=== PATIENT | female | born 1995 | race Caucasian/White ===

== ENCOUNTER 2025-05-25 08:42 | Outpatient (AMB) | payer OTHER, SELFPAY ==
--- NOTE | 2025-05-25 08:43 | MHC.PC.OV ---
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 Is last menstrual period known: Yes Last menstrual period: 05/21/25 Post menopausal: No Patient : No Allergies amoxicillin Allergy (Intermediate, Verified 05/25/25 09:10) Hallucinations Penicillins Allergy (Intermediate, Verified 05/25/25 09:10) Hallucinations Medication List - Last Reconciled 05/25/25 by Bonifacio Franco CNP cetirizine (Zyrtec) 10 mg PO BID PRN cholecalciferol (vitamin D3) 125 mcg PO DAILY famotidine (Heartburn Relief (famotidine)) 20 mg PO BEDTIME famotidine 10 mg PO DAILY multivitamin (Daily Multi-Vitamin tablet) 1 tab PO DAILY omalizumab (Xolair) 300 mg subcut Q2W tirzepatide (weight loss) (Zepbound) mg subcut Tobacco use date assessed: 05/25/25 Dental Screening Dental Screen Date: 05/25/25 Did you have a dental visit in the last 12 months?: No Did you have a dental problem in the last 6 months where you did not have access to dental care?: No Was dental information given to patient?: Yes HPI HPI Comments History of Present Illness Details 29-year-old female presents to establish [facility]. She admits to taking her medications as prescribed without adverse reactions. She notes controlled depressive symptoms. She was on psychotropic medications until 12 years ago. She is followed by a therapist weekly. Prior PCP? - [facility] Last office visit/CPE/labs - 1.5 year ago Acute issue(s) - None Past Medical History - Depression, vitamin d deficiency, chronic idiopathic urticaria (on famotidine and xolair), sinusitis, obesity (on tirzepatide) Surgical History - None Family History - Dad: Thyroid disorder - Mom: Cervical cancer - MGM: Breast cancer - PGF: Cardiovascular disease Social History - Nonsmoker. Does not vape. Drinks less than 1 glass of mixed drink weekly. CBD gummy once weekly - Has been making healthy dietary choices. Exercises routinely. Difficulty falling and staying asleep for the past 2-3 years, CBD is helpful, snores but never had a sleep study Health maintenance - Last eye exam was 10 years ago. Referred to Ophthalmology for routine eye exam - Last dental visit was several years ago; encouraged to schedule an appointment with his dentist for routine dental care - Last Tdap was in 2018; record not currently available - Has not been vaccinated for the flu this season; plans on getting the vaccine soon - Last pap smear test was 03/2025: Normal: Record not currently available Specialists - [facility], [employer] [facility] at [facility], weight management clinic, [facility], therapist [facility] Medical History (Updated 05/25/25 @ 09:33 by Bonifacio Franco CNP) Depression Sinusitis Family History (Updated 05/25/25 @ 09:03 by Paris Pitts MA) Maternal Aunt FH: mental illness Substance abuse Paternal Grandfather Cardiovascular disease Father Thyroid disorder Mother Cervical cancer Maternal Grandmother Breast cancer Social History (Updated 05/25/25 @ 08:56 by Paris Pitts MA) Housing: Apartment Patient Tobacco Use Status: Never used Tobacco e-Cigarette/Vaping Use: Never Used Second Hand Smoke Exposure: No Substance Use Type: Marijuana service: No Current occupational status: employed 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 1. Little interest or pleasure in doing things: not at all 2. Feeling down, depressed, or hopeless: not at all 3. Trouble falling or staying asleep, or sleeping too much: several days 4. Feeling tired or having little energy: several days 5. Poor appetite or overeating: not at all 6. Feeling bad about yourself - or that you are a failure or have let yourself or your family down: several days 7. Trouble concentrating on things, such as reading the newspaper or watching television: not at all 8. Moving or speaking so slowly that other people could have noticed. Or the opposite - being so fidgety or restless that you have been moving around a lot more than usual: not at all 9. Thoughts that you would be better off or of hurting yourself in some way: not at all Total score: 3 Depression Screening Interpretation: Negative Depression Screening Done: Yes 41058 - PHQ-9 Billing: Yes Source: Developed by Drs. Luke Butler, Claire De Leon, Yuriy Hampton and colleagues, with an educational arie from [employer]. Thrive Questionnaire Date Thrive assessed: 05/25/25 I am a: Patient What is your living situation today?: I have a steady place to live Within the past 12 months, did the food you bought not last and you didn't have the money to get more?: Never true Within the past 12 months, did you worry whether your food would run out before you got money to buy more?: Never true Do you have trouble paying for medicines?: No Do you have trouble getting transportation to medical appointments?: No Do you have trouble paying your heating and electricity bill?: No Do you have trouble taking care of your child, family member or friend?: No Do you have trouble with day-to-day activities such as bathing, preparing meals, shopping, managing finances, etc.?: No Are you currently unemployed and looking for a job?: No Are you interested in more education?: No Please select the resources that you would like help with: None Currently or been in a relationship where the following occur: No concerns reported THRIVE Score: 0 AUDIT C Alcohol Use Questionnaire (AUDIT-C) 1. How often do you have a drink containing alcohol?: Monthly or less 2. How many drinks containing alcohol do you have on a typical day when you are drinking?: 1 or 2 3. How often do you have six or more drinks on one occasion?: Less than monthly Total Score: 2 Score Reviewed/Action Taken: Yes CANDI-7 AMB Questionnaire CANDI-7 Date CANDI - 7 assessed: 05/25/25 Feeling nervous, anxious, or on edge: 1 = Several days Not being able to stop or control worryin = Not at all Worrying too much about different things: 1 = Several days Trouble relaxin = Several days Being so restless that it is hard to sit still: 0 = Not at all Becoming easily annoyed or irritable: 1 = Several days Feeling afraid as if something awful might happen: 0 = Not at all Total CANDI-7 score (0-4 normal; 5-9 mild; 10-14 moderate; 15-21 severe): 4 Source: Developed by Drs. Luke Butler, Claire De Leon, Yuriy Hampton and colleagues, with an educational arie from [employer]. CANDI-7 Assessment Billing CANDI-7 Assessment Tool: CANDI-7 Assessment 55521 Review of Systems Const Details: Denies chills, Denies fatigue, Denies fever(s), Denies headache(s) and Denies weakness HEENT Denies change in vision, Denies dizziness, Denies headache(s), Denies hearing loss, Denies nasal congestion, Denies sinus pain, Denies sinus pressure and Denies sore throat Card Denies chest pain, Denies lightheadedness, Denies dyspnea and Denies other (palpitations) Resp Denies cough, Denies dyspnea and Denies wheezing GI Denies abdominal pain, Denies melena, Denies hematochezia, Denies change in bowel habits, Denies dyspepsia and Denies nausea Denies hematuria and Denies dysuria Musc Denies abnormal gait, Denies myalgias, Denies arthralgias, Denies numbness and Denies tingling Skin/Breast Denies rash, Denies unusual bruising and Denies wounds Neuro Denies abnormal gait, Denies dizziness, Denies headache(s), Denies memory loss, Denies numbness, Denies Sensory deficit (Neuro), Denies tingling and Denies weakness Psych Denies anxiety, Denies depression and Denies memory loss Endo Denies cold intolerance, Denies fatigue, Denies heat intolerance, Denies polydipsia and Denies polyuria Kurt/Lymph Denies easy bleeding and Denies easy bruising Aller/Immun Denies wheezing Physical exam (Primary Care) Vital Signs: Last Vital Signs Temp 97.9 F 05/25/25 08:57 Pulse 86 05/25/25 08:57 Resp 16 05/25/25 08:57 BP 122/73 05/25/25 08:57 Pulse Ox 99 05/25/25 08:57 Oxygen Delivery Method Room Air 05/25/25 08:57 BMI result Body Mass Index 37.9 Tobacco/Smoking Status: Tobacco use Status Tobacco use date assessed 05/25/25 05/25/25 09:04 Patient Tobacco Use Status Never used Tobacco 05/25/25 09:04 e-Cigarette/Vaping Use Never Used 05/25/25 09:04 PHQ-9: PHQ-9 Score PHQ-9: Total score 3 05/25/25 09:12 Depression Screening Interpretation: Negative Thrive Assessment: Date of Thrive Assessment Date Thrive assessed 05/25/25 05/25/25 09:04 Currently or been in a relationship where the following occur: No concerns reported Const Other: General: no acute distress, well developed, alert and awake Nutritional Appearance: well nourished Orientation/consciousness: patient oriented x3 HENMT Head: Yes normocephalic and Yes atraumatic Ears: hearing grossly normal bilaterally and TM's normal bilaterally General nose exam: Normal external nose present and Normal nares present Mouth: Normal oral and palatal mucosa present and moist mucous membranes Teeth and gingiva: dentition normal Throat: Yes oropharynx normal Eyes Pupils: Equal, round and reactive pupils present and Pupil accommodation reflex normal EOM: EOMs intact bilaterally Neck Neck: Yes normal visual inspection, Yes no lymphadenopathy and Yes trachea midline Thyroid: Thyroid normal Carotids: no bruits Lymphatic: no lymphadenopathy noted Chest Chest palpation & inspection: normal inspection of the chest Resp Effort & Inspection: normal respiratory effort Auscultation: clear to auscultation bilaterally Cardio Rate: regular rate Rhythm: regular rhythm Heart sounds: S1 normal heart sound present, S2 normal heart sound present, no gallops, no murmurs and no rubs Bruits: no abdominal aortic bruits and no carotid bruits GI Palpation (GI): No Abdominal aortic bruit present, Soft to palpation, nontender, No hepatosplenomegaly present and No Rebound tenderness present Auscultation: normal bowel sounds General: Yes no CVA tenderness Back/Spine/Pelvis Back: no CVA tenderness Cervical Spine: cervical ROM normal and No Cervical spine tenderness Thoracic/Lumbar Spine: thoraco-lumbar ROM normal, No pain with thoraco-lumbar ROM, No thoracic spinal tenderness and No lumbar spinal tenderness Skin General: warm and dry. Normal skin color. Normal skin turgor Lesions: no lesions Rashes: no rashes Trauma: no lacerations or abrasions Wounds: no wounds Nails: normal Neuro General: patient oriented x3, gait normal and CN's II-XI intact bilaterally Cranial nerves: Yes Equal, round and reactive pupils present Cognition (Neuro): normal cognition Gait exam (Neuro): Normal gait present Motor exam (neuro): 5/5 motor strength present throughout Sensory Exam: No Sensory deficit (Neuro) Deep tendon reflexes (DTR's): Right patellar reflex intensity grade: 2+ and Left patellar reflex intensity grade: 2+ Extrem General: Yes normal to inspection, No edema and No calf tenderness Psych Appearance: grossly normal Affect: normal affect Attitude: cooperative Thought process: Normal thought process present Coding Level of Care Code New Pt Level 4 (28343) New Pt Prev Care 18-39yr(17945 Diagnoses Normal physical examination, routine Z00.00 Sleep disturbance G47.9 Snoring R06.83 Eye exam, routine Z01.00 Laboratory tests ordered as part of a complete physical exam (CPE) Z00.00 Additional Codes CANDI-7 Assessment Billing - CANDI-7 Assessment Tool: CANDI-7 Assessment 36825 ([id number]) PHQ-9 - 33702 - PHQ-9 Billing: Yes ([id number]) Assessment & Plan Assessment & Plan (1) Normal physical examination, routine: Code(s): Z00.00 - Encounter for general adult medical examination without abnormal findings Category: Medical Plan: No significant functional limitation noted. Continue current treatment regimen. Healthy diet and routine exercise encouraged. Perform lab work and follow-up for telehealth visit for labs review in 2-4 weeks. Follow-up with specialists as planned. Return sooner with symptoms or concerns. Verbalized understanding and agreed with the plan. (2) Sleep disturbance: Code(s): G47.9 - Sleep disorder, unspecified Category: Medical Plan: Reports difficulty falling and staying asleep for the past 2-3 years. CBD is helpful. She snores but has never had a sleep study. Likely attributed to sleep apnea. Instructed on sleep hygiene. Referred to sleep medicine for a sleep study. (3) Snoring: Code(s): R06.83 - Snoring Category: Medical Plan: Plan as above. (4) Eye exam, routine: Code(s): Z01.00 - Encounter for examination of eyes and vision without abnormal findings Category: Medical Plan: Last eye exam was 10 years ago. Referred to Ophthalmology for routine eye exam. (5) Laboratory tests ordered as part of a complete physical exam (CPE): Code(s): Z. - Encounter for general adult medical examination without abnormal findings Category: Medical Plan: Fasting labs ordered as part of a complete physical exam. Advised to fast for at least 10 hours before getting labs drawn. May drink water Verbalized understanding and agreed with treatment plan. Orders: Orders TSH reflex Free T4 05/25/25 Z00.00 - Encounter for general adult medical examination without abnormal findings UA CC w/rflx Micro + Cult 05/25/25 Z00.00 - Encounter for general adult medical examination without abnormal findings Complete Blood Count Auto Diff 05/25/25 Z00.00 - Encounter for general adult medical examination without abnormal findings Comprehensive Brickeys. Panel Fast 05/25/25 Z00.00 - Encounter for general adult medical examination without abnormal findings Lipid Panel 05/25/25 Z00.00 - Encounter for general adult medical examination without abnormal findings Microalbumin, Random (w Creat) 05/25/25 Z00.00 - Encounter for general adult medical examination without abnormal findings Vitamin D 25-OH Total 05/25/25 Z00.00 - Encounter for general adult medical examination without abnormal findings Referrals Sleep Medicine Referral G47.9 - Sleep disorder, unspecified, R06.83 - Snoring Ophthalmology Referral Z01.00 - Encounter for examination of eyes and vision without abnormal findings
[2025-05-25 08:57] VITALS: BP 122/73; PULSE 86; RESP 16; TEMP 36.6; O2SAT 99; BMI 37.9
--- OUTSIDE RECORDS SUMMARY | 2025-05-25 10:05 | XMS_ITS | Clinical Summary ---
Author Organization 175 [facility] Address [address] [place] [address] Phone Care Team Providers Care Finishing Trimmer Name Role Phone Yuli Berg MD Primary Care Provider [phone] Allergies Active Allergy Reactions Criticality Noted Date Comments Azithromycin Hives 10/05/2017 Penicillin G Hallucinations 07/24/2013 Medications omalizumab (XOLAIR) 150 mg injection Inject 300 mg into the skin every 28 days. 1 Active loratadine (CLARITIN) 10 mg tablet Take 2 Tabs by mouth 2 times daily. morning 0 Active hydrocortisone 2.5 % cream Apply two times a day to rash for 7-10 days. 3 Active famotidine (PEPCID) 20 mg tablet Take 1 Tab by mouth 2 times daily. 0 Active etonogestrel-eluti ng contraceptive device 68 mg implant subdermal implant Inject 68 mg into the skin Once. 9 Active EPINEPHrine (EpiPen 2-Arvin) 0.3 mg/0.3 mL injection Inject 1 Device as directed as needed (anaphylaxis) . Use as directed 0 Active cetirizine (ZyrTEC) 10 mg capsule Take 10 mg by mouth. 10 mg twice daily 20 mgs at nigh Active tirzepatide, weight loss, (Zepbound) 15 mg/0.5 mL injectionIndicatio ns:Class 3 severe obesity due to excess calories with body mass index (BMI) of 40.0 to 44.9 in adult, unspecified whether serious comorbidity present (CMS/HCC V24, CMS/HCC V28) Inject 0.5 mL (15 mg total) under the skin every 7 (seven) days. 2 mL 5 5 Active Active Problems Problem Noted Date Diagnosed Date Hepatic steatosis 06/14/2024 Class 3 severe obesity with body mass index (BMI) of 45.0 to 49.9 in adult ([facility] V24, [facility] V28) 06/14/2024 Morbid obesity with BMI of 4 5.0-49.9, adult ([facility] V24, [facility] V28) 06/14/2024 Vitamin D insufficiency 09/16/2021 Allergic conjunctivitis of both eyes 06/22/2020 Angio-edema 06/22/2020 Chronic urticaria 06/22/2020 Seasonal allergic rhinitis 06/22/2020 Dyslipidemia 09/28/2017 Major depressive disorder wi th single episode, in full remission ([facility] V24) 09/28/2017 Encounters Date Type Department Care Team Description 03/03/2025 10:45 AM EDT Office Visit Bariatric Surgery - [address] [address] Johanna Lock MD Class 3 severe obesity due to excess calories with body mass index (BMI) of 40.0 to 44.9 in adult, unspecified whether serious comorbidity present ([facility] V24, [facility] V28) (Primary Dx) from Last 3 Months Immunizations Name Administration Dates Next Due COVID-19 (Pfizer/Comirnaty) 12yo and older 06/08/2023 DTP 03/23/2000, 6,1995,02/19,1994 [id number] (Pentacel) 2mo to less than 5yo 03/23/2000,02/19/1995,1994,10/20 H1N1 Inj Preservative Free 08/12/2009 HPV, Quadrivalent 10/28/2010,06/24/2010,04/22/20 10 Hepatitis B Pediatric (Enger ix B; Recombivax HB) to less than 20 yo 08/22/1995,1994,1994 IPV Inactivated polio (Ipol) 6wks and older 02/18/1996,02/19/1995,1994,10/20 Influenza, Unspecified 06/04/2023 MMR, measles mumps and rubel la Live (Priorix; M-M-R II) 12mo and older 03/23/2000,11/19/1995 Meningococcal MCV4P 04/22/2010 Moderna SARS-CoV-2 COVID-19, mRNA, LNP-S, preservative free 07/27/2021,01/07/2021,12/10/2020 Pfizer SARS-CoV-2 COVID-19, mRNA, LNP-S, preservative free 06/05/2023 Tdap Tetanus diptheria acell ular pertussis (Boostrix; Adacel) 7yo and older 09/28/2017,08/22/2006 Varicella live (Varivax) 12m o and older 08/07/2007,05/19/1999 Surgical History Surgery Date Site/Laterality Comments OTHER SURGICAL HISTORY PROCEDURE: DENIES PREVIOUS SURGERY Medical History Medical History Date Comments Morbid obesity with BMI of 4 5.0-49.9, adult (CMS/HCC V24, CMS/HCC V28) 09/28/2017 DX:Morbid obesity wit h BMI of 45.0-49.9, adult (HCC) Dyslipidemia 09/28/2017 DX:Dyslipidemia Family history of breast cancer 09/28/2017 DX:Family history of breast cancer Family history of thyroid disease 10/17/2013 DX:Family history of thyroid disease Major depressive disorder wi th single episode, in full remission (CMS/HCC V24) 09/28/2017 DX:Major depressive disorder with single episode, in full remission (HCC) Hepatic steatosis DX:Hepatic shona atosis Family History Medical History Relation Name Comments Other: breast cancer Aunt in 20s, Anemia, maternal, drug addiction Other: Thyroid disease Father Other: allergic rhinitis Father Other: heart disease Father's side 1 Melanoma Father's side 2 Uncle Breast cancer Maternal Grandmother bilate ral Cervical cancer Mother Other: allergic rhinitis Mother Other: Sepsis Mother's side Aunt Celiac disease Paternal Grandmother Other: eating disorder Sister 1 Other: allergic rhinitis Sister 2 Colon cancer Neg Hx Ovarian cancer Neg Hx Uterine cancer Neg Hx Relation Name Status Comments Aunt Father Alive Father's side 1 Father's side 2 Maternal Grandmother Alive Mother Alive Mother's side Paternal Grandmother Sister 1 Alive Sister 2 Alive Social History Tobacco Use Types Packs/Day Years Used Date Smoking Tobacco: Never Smokeless Tobacco: Never Alcohol Use Standard Drinks/Week Comments Yes 0 (1 standard drink = 0.6 oz pur e alcohol) Comments Unknown Sex and Gender Information Value Date Recorded Sex Assigned at Not on file Legal Sex Female 10:36 AM EST Gender Identity Not on file Sexual Orientation Not on file Obstetrics History Last Filed Vital Signs Vital Sign Reading Time Taken Comments Blood Pressure 106/72 03/03/2025 10:30 AM EDT Pulse 84 03/03/2025 10:30 AM EDT Temperature 36.6 C (97.8 F) 03/03/2025 10:30 AM EDT Respiratory Rate - - Oxygen Saturation - - Inhaled Oxygen Concentration - - Weight 116 kg (256 lb) 03/03/2025 10:30 AM EDT Height 170.2 cm (5' 7 ) 03/03/2025 10:30 AM EDT Body Mass Index 40.1 03/03/2025 10:30 AM EDT Plan of Treatment Upcoming Encounters Date Type Department Care Team (Late st Contact Info) Description 09/08/2025 4:15 PM EST Office Visit Bariatric Surgery - [address] [place] [address] Johanna Lock MD [address] [place] [phone] Health Maintenance Due Date Last Done Comments Pneumococcal Vaccine: Pediatrics (0 to 5 Years) and At-Risk Patients (6 to 49 Years) (1 of 2 - PCV) 2013 Cervical Cancer Screening: Pap Smear 09/28/2020 09/28/2017, 09/28/2017 Social Influencers of Health Screening 08/01/2022 Depression Screening 09/03/2024 08/24/2023 Influenza Vaccine (#1) 2025 , 06/08/2023, 06/04/2023, Additional history exists DTaP,Tdap,and Td Vaccines (8 - Td or Tdap) 09/28/2027 09/28/2017, 08/22/2006, 03/23/2000, Additional history exists Cholesterol Screening (Lipid Panel) 03/04/2030 03/04/2025, 05/20/2024, 05/20/2024 RSV Immunization Adult Patients (1 - 1-dose 75+ series) 2069 Hepatitis B Vaccines Completed 08/22/1995, 1994, 1994 HIB Vaccines Aged Out 03/23/2000, 03/04, 02/19/1995, Additional history exists No longer eligible based on patient's age to complete this topic IPV Vaccines Completed 03/23/2000, 02/01, 02/19/1995, Additional history exists MMR Vaccines Completed 03/23/2000, 11/19/1995 Varicella Vaccines Completed 08/07/2007, 05/19/1999 Meningococcal ACWY Vaccine Aged Out 04/22/2010 N o longer eligible based on patient's age to complete this topic HPV Vaccines Completed 10/28/2010, 06/04, 04/22/2010 HIV Screening Completed 04/29/2019 COVID-19 Vaccine Completed 05/15/2024, 02/2023, 06/05/2023, Additional history exists Hepatitis C Screening Completed 05/20/2024 Hepatitis A Vaccines Aged Out No long er eligible based on patient's age to complete this topic Meningococcal B Vaccine Aged Out No l onger eligible based on patient's age to complete this topic RSV Immunization Patients Under 20 months Aged Out No longer eligible based on patient's age to complete this topic Procedures Procedure Name Priority Date/Time Associated Diagnosis Comments LIPID PANEL WITH REFLEX TO DIRECT LDL Routine 03/04/2025 9:58 AM EDT Class 3 severe obesity due to excess calories with body mass index (BMI) of 40.0 to 44.9 in adult, unspecified whether serious comorbidity present (CMS/HCC V24, CMS/HCC V28) HEPATIC FUNCTION PANEL Routine 03/04/2025 9:58 AM EDT Class 3 severe obesity due to excess calories with body mass index (BMI) of 40.0 to 44.9 in adult, unspecified whether serious comorbidity present (CMS/HCC V24, CMS/HCC V28) HM HEPATITIS C SCREENING Routine 05/20/2024 DEPRESSION SCREENING Routine 08/24/2023 HIV SCREENING Routine 04/29/2019 HPV Routine 09/28/2017 from Last 3 Months or Most Recently Relevant to Health Maintenance Results * Lipid panel with reflex to direct LDL (03/04/2025 9:58 AM EDT) Cholesterol 126 0 - 200 mg/dL LAB CHEMISTRY METHOD 03/04/2025 3:25 PM EDT [facility] Triglycerides 78 0 - 150 mg/dL LAB CHEMISTRY METHOD 03/04/2025 3:25 PM EDT [facility] HDL 44 >=40 mg/dL LAB CHEMISTRY METHOD 03/04/2025 3:25 PM EDT [facility] LDL Calculated 66 0 - 100 mg/dL LAB CHEMISTRY METHOD 03/04/2025 3:25 PM EDT [facility] VLDL Cholesterol Arcadio 15.6 mg/dL LAB CHEMISTRY METHOD 03/04/2025 3:25 PM EDT [facility] Non HDL Chol. (LDL+VLDL) 82 <145 mg/dL LAB CHEMISTRY METHOD 03/04/2025 3:25 PM EDT [facility] Chol/HDL Ratio 2.9 0.0 - 4.4 LAB CHEMISTRY METHOD 03/04/2025 3:25 PM EDT [facility] Blood Venous blood specimen / Unknown Venipuncture / Unknown 03/04/2025 9:58 AM EDT 03/04/2025 9:58 AM EDT us Johanna Lock MD LAB BLOOD ORDERABLES Final R esult [facility] [address] [place] [address], [place] [phone] * (ABNORMAL) Hepatic function panel (03/04/2025 9:58 AM EDT) Total Protein 7.1 6.0 - 8.0 g/dL LAB CHEMISTRY METHOD 03/04/2025 3:25 PM EDT [facility] Albumin 4.0 3.2 - 5.0 g/dL LAB CHEMISTRY METHOD 03/04/2025 3:25 PM EDT [facility] Total Bilirubin 0.4 0.0 - 1.4 mg/dL LAB CHEMISTRY METHOD 03/04/2025 3:25 PM EDT [facility] Bilirubin, Direct 0.1 0.0 - 0.3 mg/dL LAB CHEMISTRY METHOD 03/04/2025 3:25 PM EDT [facility] Bilirubin, Indirect 0.3 0.0 - 1.1 mg/dL LAB CHEMISTRY METHOD 03/04/2025 3:25 PM EDT [facility] ALT (SGPT) 20 10 - 60 unit/L LAB CHEMISTRY METHOD 03/04/2025 3:25 PM EDT [facility] AST (SGOT) 6(L) 10 - 42 unit/L LAB CHEMISTRY METHOD 03/04/2025 3:25 PM EDT [facility] Alkaline Phosphatase 49 42 - 121 unit/L LAB CHEMISTRY METHOD 03/04/2025 3:25 PM EDT [facility] Blood Venous blood specimen / Unknown Venipuncture / Unknown 03/04/2025 9:58 AM EDT 03/04/2025 9:58 AM EDT us Johanna Lock MD LAB BLOOD ORDERABLES Final R esult [facility] [address] [place] [address], [place] [phone] * Hepatitis C Screening (05/20/2024) Pathologist [facility] Hepatitis C Screening abstracted us Historical Provider HEALTH MAINTENANCE Final Result * Depression Screening (08/24/2023) Depression Screening abstracted Historical Provider HEALTH MAINTENANCE Final Result * HIV Screening (04/29/2019) Pathologist [facility] HIV Screening abstracted Historical Provider HEALTH MAINTENANCE Final Result * Cervical Cancer Screening: HPV (09/28/2017) Pathologist [facility] Cervical Cancer Screening: HPV positive, abstracted Historical Provider HEALTH MAINTENANCE Final Result from Last 3 Months or Most Recently Relevant to Health Maintenance [place] [address] [facility] [place] [address] Care Teams Finishing Trimmer Relationship Specialty Start Date End Date Yuli Berg MD [address] [place] [id number] PCP - General Internal Medicine 03/03/25
== END 2025-05-25 09:33 | disposition home or self-care (01) ==
LOC: HO.HMCFM 08:42
PROVIDERS: PCP Nurse Practitioner Family; Visit Provider Nurse Practitioner Family
DX: Z00.00 Encounter for general adult medical examination without abnormal findings (principal); G47.9 Sleep disorder, unspecified; R06.83 Snoring; Z01.00 Encounter for examination of eyes and vision without abnormal findings

== ENCOUNTER → 2025-05-25 08:42 | Outpatient (BNVA) | payer OTHER, SELFPAY | PROVIDERS: PCP Nurse Practitioner Family; Visit Provider Nurse Practitioner Family | DX: Z00.00 Encounter for general adult medical examination without abnormal findings (principal); R06.83 Snoring | CPT/HCPCS: 96127; 99202; 99385 ==

== ENCOUNTER 2025-06-08 07:37 | Outpatient (REF) | payer OTHER, SELFPAY ==
--- OUTSIDE RECORDS SUMMARY | 2025-06-08 07:42 | XMS_ITS | Clinical Summary ---
Author Organization 175 [facility] Address [address] [place] [address] Phone Care Team Providers Care Housekeeping Supervisor Name Role Phone Yuli Berg MD Primary Care Provider [phone] Allergies Active Allergy Reactions Criticality Noted Date [...] (BMI) of 45.0 to 49.9 in adult ([facility] V24, [facility] V28) 06/14/2024 Morbid obesity with BMI of 4 5.0-49.9, adult ([facility] V24, [facility] V28) 06/14/2024 Vitamin D insufficiency 09/16/2021 Allergic conjunctivitis of both eyes 06/22/2020 Angio-edema 06/22/2020 Chronic urticaria 06/22/2020 Seasonal allergic rhinitis 06/22/2020 Dyslipidemia 09/28/2017 Major depressive disorder wi th single episode, in full remission ([facility] V24) 09/28/2017 Immunizations Immunization Administration Dates Next Due COVID-19 (Pfizer/Comirnaty) 12yo and older 06/08/2023 DTP 03/23/2000, 6,1995,02/19,1994 [id number] (Pentacel) 2mo to less than 5yo 03/23/2000,02/19/1995,1994,10/20 [...] SARS-CoV-2 COVID-19, mRNA, LNP-S, preservative free 07/27/2021,01/07/2021,12/10/2020 Isentropic SARS-CoV-2 COVID-19, mRNA, LNP-S, preservative free 06/05/2023 [...] PM EST Office Visit Bariatric Surgery - [address] [place] [address] Johanna Lock MD [address] [place] [phone] Health Maintenance Due Date Last Done [...] 1994, 1994 HIB Vaccines Aged Out 03/23/2000, 07/09/1999, 02/19/1995, Additional history exists No longer eligible [...] serious comorbidity present (CMS/HCC V24, CMS/HCC V28) HEPATITIS C SCREENING Routine 05/20/2024 DEPRESSION SCREENING Routine 08/24/2023 HIV SCREENING Routine 04/29/2019 HPV Routine 09/28/2017 from Last 3 Months or Most Recently Relevant to Health Maintenance Results * Lipid panel with reflex to direct LDL (03/04/2025 9:58 AM EDT) Cholesterol 126 0 - 200 mg/dL LAB CHEMISTRY METHOD 03/04/2025 3:25 PM EDT [facility] Triglycerides 78 0 - 150 mg/dL LAB CHEMISTRY METHOD 03/04/2025 3:25 PM EDT [facility] HDL 44 >=40 mg/dL LAB CHEMISTRY METHOD 03/04/2025 3:25 PM EDT [facility] LDL Calculated 66 0 - 100 mg/dL LAB CHEMISTRY METHOD 03/04/2025 3:25 PM EDT [facility] VLDL Cholesterol Arcadio 15.6 mg/dL LAB CHEMISTRY METHOD 03/04/2025 3:25 PM EDT [facility] Non HDL Chol. (LDL+VLDL) 82 <145 mg/dL LAB CHEMISTRY METHOD 03/04/2025 3:25 PM EDT [facility] Chol/HDL Ratio 2.9 0.0 - 4.4 LAB CHEMISTRY METHOD 03/04/2025 3:25 PM EDT [facility] Blood Venous blood specimen / Unknown Venipuncture / Unknown 03/04/2025 9:58 AM EDT 03/04/2025 9:58 AM EDT Johanna Lock MD LAB BLOOD ORDERABLES Final R esult [facility] [address] [place] [address], [place] [phone] * Hepatitis C Screening (05/20/2024) [facility] Hepatitis C Screening abstracted Historical Provider HEALTH MAINTENANCE Final Result * Depression Screening (08/24/2023) [facility] Depression Screening abstracted Historical Provider HEALTH MAINTENANCE Final Result * HIV Screening (04/29/2019) [facility] HIV Screening abstracted Historical Provider HEALTH MAINTENANCE Final Result * Cervical Cancer Screening: HPV (09/28/2017) [facility] Cervical Cancer Screening: HPV positive, abstracted Historical Patricia URBINA HEALTH MAINTENANCE Final Result from Last 3 Months or Most Recently Relevant to Health Maintenance Insurance [facility] [place] [id number] [facility] [employer] Care Teams Housekeeping Supervisor Relationship Specialty Start Date End Date Yuli Berg MD [address] [place] [phone] PCP - General Internal Medicine 03/03/25
[2025-06-08 11:36] LABS: MANUAL DIFF FLAG NO
[2025-06-08 11:39] LABS: Hematocrit 40.6 % (37.0-47.0); Hemoglobin 13.8 g/dl (12.0-16.0); Imm Gran Abs Auto 0.02 X10*3/uL (0.00-0.03); Imm Gran Pct Auto 0.3 % (0.0-0.4); Lymphocytes Absolute Auto 1.3 X10*3/uL (1.2-4.9); Mean Corpuscular HGB Conc 34.0 g/dl (31.0-35.0); Mean Corpuscular Hemoglobin 30.2 pg (27.0-33.0); Mean Corpuscular Volume 88.8 fL (80.0-98.0); NRBC Abs Auto 0.000 X10*3/uL (0.0-0.012); NRBC Pct Auto 0.0 /100WBC (0.0-0.2); Platelet Count 197 X10*3/uL (160-400); Red Blood Count 4.57 X10*6/uL (4.20-5.50); White Blood Count 7.0 X10*3/uL (4.8-10.8)
[2025-06-08 12:05] LABS: Alanine Aminotransferase 15 U/L (0-31); Albumin Level 4.1 g/dL (3.5-5.0); Alkaline Phosphatase 47 U/L (39-117); Anion Gap 9 (12-20); Aspartate Amino Transferase 18 U/L (5-31); Blood Urea Nitrogen 10 mg/dL (9-16); Calcium 8.9 mg/dL (8.4-10.2); Carbon Dioxide 27 mmol/L (22-29); Chloride 107 mmol/L (96-108); Cholesterol 127 mg/dL (<200); Estimated Glomerular Filt Rate > 60; HDL Cholesterol 36 mg/dL (>40); Potassium 3.9 mmol/L (3.3-5.1); Sodium 139 mmol/L (135-145); Total Protein 6.8 g/dL (6.5-8.0); Triglycerides 57 mg/dL (<150)
[2025-06-08 14:54] LABS: Appearance Urine Clear; Glucose Urine UA Negative (Negative); PH 6.0 (5.0-9.0); Specific Gravity - Urine <= 1.005 (1.005-1.025)
== END 2025-06-08 07:38 | disposition home or self-care (01) ==
LOC: HO.WFDLDS 07:37
PROVIDERS: Visit Provider Nurse Practitioner Family
DX: Z00.00 Encounter for general adult medical examination without abnormal findings (principal)
CPT/HCPCS: 36415; 80053; 80061; 81003; 82043; 82306; 82570; 84443; 85025

== ENCOUNTER 2025-06-24 08:28 | Outpatient (AMB) | payer OTHER, SELFPAY ==
--- NOTE | 2025-06-24 08:31 | MHC.OFFVIS ---
Vital Signs 06/24/25 08:32 Height 5 ft 7 in Weight 240 lb BMI 37.6 BP 114/86 Blood Pressure Location Lt brachial Position Sitting Pulse 94 Pulse Source Pulse Oximeter Pulse Oximetry (%) 96 Intake Visit Reasons: INP-Sleep Disorder Intake Note: Patient presents [facility] Sleep Disorder. Difficulty falling and staying asleep for the past 2-3 years, CBD is helpful, snores but never had a sleep study. No witnessed apnea/gasping. Goes to bed 9:30-10pm and wake up at 6am. Wakes up 3-4times. Naps 30min-1.5hrs. Accompanied by: Self / Same As Patient Allergies amoxicillin Allergy (Intermediate, Verified 06/24/25 08:34) Hallucinations Penicillins Allergy (Intermediate, Verified 06/24/25 08:34) Hallucinations HPI Comments Details: 29 year old female is a new pt referral for sleep disorder. Difficulty falling asleep for the past 2 years snoring and no gasping for air. She goes to bed at 10pm with multiple night time awakenings. She takes 5mg of CBD and will get about 4 to 5 hours of sleep then wakes up. She denies morning headaches and clenches her jaw, wakes up with sore r. sided temporal pain. She notices her eyes become fatigued due to long periods of computer use, is now starting to wear her new glasses. She has allergies, for chronic hives and doesnt understand triggers and sees an ash kier boiler. She has gerd and is managed with diet and lifestyle, along with pepcid ac daily. She has bouts of of depression, sees a therapist weekly. Her memory and diet are stable. She is on Zepbound for 2 years now and manages her portion sizes. She has RLS symptoms with constant urge to rub her legs together and it is not distressing. She has numbness and tingling in her left hand and notices she was dropping things due to weakness in that arm. Right arm goes numb also but mildly. She does not smoke or drink alcohol. 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 Current occupational exposures/hazards: No Cognitive needs: No Hearing needs: No Vision needs: No Physical Exam Vital Signs: Last Vital Signs Pulse 94 06/24/25 08:32 BP 114/86 06/24/25 08:32 Pulse Ox 96 06/24/25 08:32 BMI result Body Mass Index 37.6 Const General: cooperative, comfortable and no acute distress Nutritional Appearance: overweight Orientation/consciousness: patient oriented x3 HEENT Face and sinus: Yes face symmetric Teeth and gingiva: other (Mallampti score is 2) Throat: Yes uvula midline Eyes Pupils: Equal, round and reactive pupils present Neck Neck: Yes full ROM Resp Effort & Inspection: normal respiratory effort and able to speak in complete sentences Neuro General: patient oriented x3 and moves all extremities Cranial nerves: Yes Equal, round and reactive pupils present, Yes Normal accommodation reflex present, Yes Nystagmus not present, Yes Normal facial strength present, Yes Midline tongue present, Yes Symmetric palate elevation present, Yes Ability to bilaterally rotate head present and Yes Ability to bilaterally elevate shoulders present Cognition (Neuro): normal cognition Gait exam (Neuro): Normal gait present Motor exam (neuro): 5/5 motor strength present throughout and Normal motor muscle tone present throughout Psych Appearance: grossly normal Mental Status: mental status grossly normal Affect: normal affect Attitude: cooperative Thought process: Normal thought process present Results Reviewed Results Reviewed: Labs reviewed with pt. Assessment & Plan Assessment & Plan (1) Excessive daytime sleepiness: Code(s): G47.19 - Other hypersomnia Category: Medical Plan HST Excessive daytime sleepiness will r/o GINA Reviewed Labs we will monitor for changes. Will check Ferritin, Folate B12, Homocysteine and MMA. Neuropathy of CTS? L>R weakness and numbness, dropping items we will monitor. B12 1000mcg daily Magnesium 200mg po daily at bedtime Orders: Orders RT home sleep study Today G47.19 - Other hypersomnia Methylmalonic Acid Today G47.19 - Other hypersomnia, G47.9 - Sleep disorder, unspecified, R53.83 - Other fatigue Homocysteine Today G47.19 - Other hypersomnia, G47.9 - Sleep disorder, unspecified, R53.83 - Other fatigue Vitamin B12 and Folate Today G47.19 - Other hypersomnia Ferritin Today G47.19 - Other hypersomnia Vitamin B6 Today G47.19 - Other hypersomnia Medications: New mecobalamin (vitamin B12) allow to dissolve in mouth OR may chew lightly before swallowing 1,000 mcg PO DAILY 60 ea 2RF neuropathy 2 months MDD 1000mcg G62.9 - Polyneuropathy, unspecified Patient Instructions: Sleep Hygiene provided: set a scheduled bedtime and wake time to help regulate the circadian rhythm and balance the release of pituitary hormones. Sleep in a dark room, temperatures below 68 degrees, and no devices n bed. Limit caffeinated products 6 hours prior to bed, and limit fluids 2-4 hours prior to bed. Gentle night yoga, diffusing essential oils, and playing soft music can be relaxing. Coding Level of Care Code New Pt Level 4 (15920) Diagnoses Excessive daytime sleepiness G47.19 Sleep Questionnaire Difficulty falling asleep: No Difficulty staying asleep?: Yes Number of arousals: 3 Snoring: Yes Witnessed apneas: No Gasping arousals: No Nocturia: No GERD: Yes Vivid dreams: Yes Acting out dreams: No Abnormal behavior in sleep: No Abnormal movements in sleep: Yes Morning headaches: No Excessive daytime sleepiness: Yes Daytime naps: Yes (on the weekends) Restless legs: No Hallucinations: No Sleep paralysis: No Drop attacks: No Sleep Study: No CPAP: No
[2025-06-24 08:32] VITALS: BP 114/86; PULSE 94; O2SAT 96; BMI 37.6
--- OUTSIDE RECORDS SUMMARY | 2025-06-24 08:45 | XMS_ITS | Clinical Summary ---
Author Organization [address] [facility] Address [address] [place] [address] Phone Care Team Providers Care Instrumentation And Control Technician Name Role Phone Yuli Berg MD Primary Care Provider [phone] Allergies Active Allergy Reactions Criticality Noted Date [...] (BMI) of 45.0 to 49.9 in adult ([facility] V24, [facility] V28) 06/14/2024 Morbid obesity with BMI of 4 5.0-49.9, adult ([facility] V24, [facility] V28) 06/14/2024 Vitamin D insufficiency 09/16/2021 Allergic conjunctivitis of both eyes 06/22/2020 Angio-edema 06/22/2020 Chronic urticaria 06/22/2020 Seasonal allergic rhinitis 06/22/2020 Dyslipidemia 09/28/2017 Major depressive disorder wi th single episode, in full remission ([facility] V24) 09/28/2017 Immunizations Immunization Administration Dates Next Due COVID-19 (Pfizer/Comirnaty) 12yo and older 06/08/2023 DTP 03/23/2000, 6,1995,02/19,1994 [id number] (Pentacel) 2mo to less than 5yo 03/23/2000,02/19/1995,1994,10/20 [...] SARS-CoV-2 COVID-19, mRNA, LNP-S, preservative free 07/27/2021,01/07/2021,12/10/2020 Catglobe SARS-CoV-2 COVID-19, mRNA, LNP-S, preservative free 06/05/2023 [...] PM EST Office Visit Bariatric Surgery - [address] [place] [address] Johanna Lock MD [address] [place] [phone] Health Maintenance Due Date Last Done Comments Cervical Cancer Screening: Pap Smear 09/28/2020 09/28/2017, [...] on patient's age to complete this topic Pneumococcal Vaccine: Pediatrics (0 to 5 Years) and At-Risk Patients (6 to 49 Years) Aged Out No longer eligible based on [...] to direct LDL (03/04/2025 9:58 AM EDT) [facility] Cholesterol 126 0 - 200 mg/dL LAB CHEMISTRY METHOD 03/04/2025 3:25 PM EDT [facility] Triglycerides 78 0 - 150 mg/dL LAB CHEMISTRY METHOD 03/04/2025 3:25 PM EDT [facility] HDL 44 >=40 mg/dL LAB CHEMISTRY METHOD 03/04/2025 3:25 PM EDT [facility] LDL Calculated 66 0 - 100 mg/dL LAB CHEMISTRY METHOD 03/04/2025 3:25 PM EDT [facility] VLDL Cholesterol [place] 15.6 mg/dL LAB CHEMISTRY METHOD 03/04/2025 3:25 PM EDT [facility] Non HDL Chol. (LDL+VLDL) 82 <145 mg/dL LAB CHEMISTRY METHOD 03/04/2025 3:25 PM EDT [facility] Chol/HDL Ratio 2.9 0.0 - 4.4 LAB CHEMISTRY METHOD 03/04/2025 3:25 PM EDT [facility] Blood Venous blood specimen / Unknown Venipuncture / Unknown 03/04/2025 9:58 AM EDT 03/04/2025 9:58 AM EDT Johanna Lock MD LAB BLOOD ORDERABLES Final R esult [facility] [address] [place] [address], [place] [phone] * Hepatitis C Screening (05/20/2024) [facility] Hepatitis C Screening abstracted Historical Provider HEALTH MAINTENANCE Final Result * Depression Screening (08/24/2023) [facility] Depression Screening abstracted Historical Provider HEALTH MAINTENANCE Final Result * HIV Screening (04/29/2019) [facility] HIV Screening abstracted Historical Provider HEALTH MAINTENANCE Final Result * Cervical Cancer Screening: HPV (09/28/2017) [facility] Cervical Cancer Screening: HPV positive, abstracted Historical Provider HEALTH MAINTENANCE Final Result from Last 3 Months or Most Recently Relevant to Health Maintenance Insurance [facility] [place] [id number] [facility] [employer] Care Teams Instrumentation And Control Technician Relationship Specialty Start Date End Date Yuli Berg MD [address] [place] [id number] PCP - General Internal Medicine 03/03/25
== END 2025-06-24 09:11 | disposition home or self-care (01) ==
LOC: HO.HSMC 08:29
PROVIDERS: PCP Nurse Practitioner Family; Visit Provider Physician Assistant Medical
DX: G47.19 Other hypersomnia (principal)
CPT/HCPCS: 99204

== ENCOUNTER → 2025-06-24 08:28 | Outpatient (BNVA) | payer OTHER, SELFPAY | PROVIDERS: PCP Nurse Practitioner Family; Visit Provider Physician Assistant Medical | DX: G47.19 Other hypersomnia (principal) | CPT/HCPCS: 99202 ==